=== PATIENT | male | born 1955 | race Caucasian/White ===

== ENCOUNTER 2017-04-07 21:31 | Emergency (ER) | payer MEDICARE, BC ==
[2017-04-08 00:33] LABS: HEMOGLOBIN 12.3 gm/dl (14.0-17.5); RED BLOOD COUNT 3.82 M/UL (4.20-5.50); WHITE BLOOD COUNT 10.8 K/UL (4.5-11.0)
== END 2017-04-08 03:55 | disposition home or self-care (01) ==
LOC: ER1 21:31
PROVIDERS: Emergency Medicine
DX: R55 Syncope and collapse (principal); I25.10 Atherosclerotic heart disease of native coronary artery without angina pectoris; E86.0 Dehydration; N28.9 Disorder of kidney and ureter, unspecified; K92.2 Gastrointestinal hemorrhage, unspecified; Z95.0 Presence of cardiac pacemaker; Z95.5 Presence of coronary angioplasty implant and graft; Z88.0 Allergy status to penicillin; Z88.8 Allergy status to other drugs, medicaments and biological substances; Z79.82 Long term (current) use of aspirin
CPT/HCPCS: 36415; 71010; 80053; 81001; 82272; 83690; 83880; 84484; 85025; 85610; 85730; 87077; 87086; 87186; 93005; 99284